=== PATIENT | male | born 2000 | race Two or more races ===

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

== ENCOUNTER → 2023-04-15 | Outpatient (REF) | payer BC ==
[2023-04-15 20:27] LABS: GC DNA AMPLIFICATION NEGATIVE (NEGATIVE)
== END ==
LOC: M LAB REF 18:45
PROVIDERS: ATTEND Physician Assistant
DX: R30.0 Dysuria (principal); Z20.2 Contact with and (suspected) exposure to infections with a predominantly sexual mode of transmission